=== PATIENT | female | born 1960 | race Caucasian/White ===

== ENCOUNTER → 2019-08-06 | Outpatient (CLI) | payer BC ==
--- NOTE | 2019-08-06 11:32 | REPMRS ---
Patient History The patient states she had a clinical breast exam in June 2019. Patient is postmenopausal. No known family history of cancer. Priors over 10 years ago, no longer available Digital Woman Screen Mammo: August 06, 2019 - Exam #: [id number] Bilateral CC and MLO view(s) were taken. Technologist: Deborah Zaldivar, Technologist No prior studies available for comparison. FINDINGS: There are scattered fibroglandular densities. There is no evidence of dominant mass, architectural distortion, or grouped microcalcification typical of malignancy. 3-D tomosynthesis shows no additional findings. Assessment: BI-RADS/ACR category 1 mammogram. Negative Mammogram. Recommendation Routine screening mammogram of both breasts in 1 year (for women over age 40). This patient's Lifetime Breast Cancer RIsk is estimated at 8.4 %. This mammogram was interpreted with the aid of an FDA-approved computer-aided dectection system. Electronically Signed By: Merrill Calderon MD 08/06/19 3605
--- NOTE | 2019-08-06 19:01 | REP ---
Clinical: Postmenopausal bleeding Technique: Transabdominal pelvic ultrasound followed by transvaginal examination for better evaluation of the endometrium and adnexa with color Doppler evaluation of the ovaries. Findings: Bladder is unremarkable and measures 8.2 x 5.7 x 6.4 cm . Heterogeneous anteverted uterus measures 7.6 x 4.1 x 5.4 cm and includes 1.5 x 0.8 x 1.4 cm complex hypoechoic structure in the cervix which may represent complex Nabothian cyst. The endometrial complex is heterogeneous and measures 12 mm thickness without discrete focal endometrial abnormality. Bilateral ovaries are normal in appearance and vascularity without evidence for torsion. Right ovary measures 2.1 x 1.2 x 1.1 cm with 0.8 cm possible complex cyst ; Left ovary measures 1.4 x 1.4 x 1.2 cm. No pelvic fluid or adnexal mass lesion . Impression: 1. 1.5 cm complex hypoechoic structure in the cervical region which may represent complex Nabothian cyst. Differential diagnosis may include fibroid. Consider short-term follow-up ultrasound and/or pelvic MRI for more definitive evaluation. 2. Heterogeneous thickened endometrial complex to 12 mm without discrete focal abnormality identified.
== END ==
LOC: M WHC 07:51
PROVIDERS: ATTEND Obstetrics & Gynecology
DX: N95.0 Postmenopausal bleeding (principal); Z12.31 Encounter for screening mammogram for malignant neoplasm of breast

== ENCOUNTER → 2019-08-16 | Outpatient (CLI) | payer BC ==
[~2019-08-16] MED LIST: ACET25TA12 PO
--- NOTE | 2019-08-17 01:08 | ECGEPIP ---
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
== END ==
LOC: M EKG 08:42
PROVIDERS: ATTEND Obstetrics & Gynecology
DX: N95.0 Postmenopausal bleeding (principal)

== ENCOUNTER → 2019-08-19 | Outpatient (CLI) | payer BC | LOC: M LABSMTC 12:10 | PROVIDERS: ATTEND Anesthesiology | DX: Z01.812 Encounter for preprocedural laboratory examination (principal); Z11.59 Encounter for screening for other viral diseases | CPT/HCPCS: C9803; U0003 ==

== ENCOUNTER 2019-08-22 11:14 | Day surgery (SDC) | payer BC ==
[~2019-08-22] VITALS: Ht 180.3 cm; Wt 121.1 kg
[~2019-08-22 11:14] MED LIST changes: +LIDOCAINE 2% 100MG/5ML SDV (FOR ANES.) As Ordered ONE; +LR 1,000 ML IV ONE; +MIDAZOLAM INJ 2MG/2ML VIAL (J2250 PER 1MG) As Ordered ONE; +fentaNYL 100 MCG/2 ML INJECTION (J3010) As Ordered ONE; +propofoL 200 MG/20 ML VIAL As Ordered ONE
[2019-08-22] MEDS ORDERED: DESFLURANE 240 ML INHALANT As Ordered ONE (13:31)
[2019-08-22] MEDS ORDERED: ACETAMINOPHEN 1000MG 100ML IV BTL (OFIRMEV) (J0131 PER 10MG) As Ordered ONE (13:33)
[2019-08-22] MEDS ORDERED: METOCLOPRAMIDE INJ 10MG/2ML VIAL (J2765 PER 1) As Ordered ONE (13:34)
[2019-08-22] MEDS ORDERED: KETOROLAC 60 MG/2 ML VIAL As Ordered ONE (13:34)
[2019-08-22] MEDS ORDERED: ONDANSETRON 4MG/2ML VIAL As Ordered ONE (13:34)
[2019-08-22] MEDS ORDERED: dexameTHASONE 4 MG/ML 1ML VIAL (J1100 PER 1MG) As Ordered ONE (13:48)
[2019-08-22] MEDS ORDERED: fentaNYL 100 MCG/2 ML INJECTION (J3010) IV PRN (14:15)
[2019-08-22] MEDS ORDERED: oxyCODONE 5MG TAB PO PRN (14:15)
[2019-08-22] MEDS ORDERED: ONDANSETRON 4MG/2ML VIAL IV PRN (14:15)
[2019-08-22] MEDS ORDERED: LR 1,000 ML IV SCH ×2 (14:15→14:30)
[2019-08-22] MEDS ORDERED: IBUPROFEN 400 MG TAB PO PRN (14:30)
[2019-08-22 15:45] VITALS: BP 166/84
--- NOTE | 2019-08-27 11:49 | RO ---
DATE OF SURGERY: 08/22/2019 PREOPERATIVE DIAGNOSES AND INDICATION FOR SURGERY: Postmenopausal bleeding with abnormal ultrasound. POSTOPERATIVE DIAGNOSES: Postmenopausal bleeding with abnormal ultrasound with official diagnosis of multiple polypoid growths of the endometrium. PROCEDURE: Dilation and curettage (D and C), hysteroscopy, MyoSure resection of all those polypoid growths. SURGEON: Evelia Moulton MD KILNMAN: None. ANESTHESIA: Laryngeal mask airway (LMA). BRIEF DESCRIPTION OF PROCEDURE AND FINDINGS: Queenie was brought to the operating room, where sufficient general LMA anesthesia was induced. She was prepped, draped, and positioned in the usual sterile fashion with the [place] retractor placed at the bladder emptied and the cervix grasped with a single-tooth tenaculum. The uterus is not particularly mobile under anesthesia. The uterus was sounded to 9 cm, and then carefully the dilators were used to dilate the cervix until the MyoSure hysteroscope could be placed. This was then placed and the endometrial cavity visualized. As noted in the operative photos, multiple endometrial polypoid growths were noted, which appear to be endometrial polyps. The MyoSure Reach was then used to resect these. As noted in the operative photos, they were resected in their visual entirety. There did not appear to be any remaining polyps when we had completed the MyoSure resection. I did take a few passes with the curette to confirm normal endometrial cry throughout, and then the procedure was ended. ESTIMATED BLOOD LOSS FOR THE PROCEDURE: Maybe 3 mL. FLUID REPLACEMENT: Crystalloid. COMPLICATIONS: None. CONDITION AND DISPOSITION: Queenie tolerated the procedure well and was recovering in the recovery room in good condition.
== END 2019-08-22 16:00 | disposition home or self-care (01) ==
LOC: M SDC 11:14
PROVIDERS: ATTEND Obstetrics & Gynecology
DX: N95.0 Postmenopausal bleeding (principal); N84.0 Polyp of corpus uteri; E66.9 Obesity, unspecified
CPT/HCPCS: 58558; 88305; J0131; J1100; J1885; J2250; J2405; J2765; J3010

== ENCOUNTER → 2020-07-01 | Outpatient (CLI) | payer BC ==
[~2020-07-01] MED LIST changes: -LIDOCAINE 2% 100MG/5ML SDV (FOR ANES.) As Ordered ONE; -LR 1,000 ML IV ONE; -MIDAZOLAM INJ 2MG/2ML VIAL (J2250 PER 1MG) As Ordered ONE; -fentaNYL 100 MCG/2 ML INJECTION (J3010) As Ordered ONE; -propofoL 200 MG/20 ML VIAL As Ordered ONE
== END ==
LOC: M LABSMTC 10:59
PROVIDERS: ATTEND Anesthesiology
DX: Z01.818 Encounter for other preprocedural examination (principal); Z20.822 Contact with and (suspected) exposure to COVID-19

== ENCOUNTER 2020-07-06 06:29 | Day surgery (SDC) | payer BC ==
[~2020-07-06] VITALS: Ht 177.8 cm; Wt 117.9 kg
[2020-07-06] MEDS ORDERED: TOBRAMYCIN 80 MG/2 ML As Ordered ONE (06:38)
[2020-07-06] MEDS ORDERED: POVIDONE-IODINE 5% OPHTH PREP SOL 30ML As Ordered ONE (06:38)
[2020-07-06] MEDS ORDERED: BETAMETHASONE SOLUSPAN 6MG/ML 5ML VIAL (J0702 PER 3MG) As Ordered ONE (06:38)
[2020-07-06] MEDS ORDERED: DUOVISC (0.50ML VISCOAT/0.55ML PROVISC) OPHTH KIT As Ordered ONE (06:39)
[2020-07-06] MEDS ORDERED: MANNITOL IV ONE (07:00)
[2020-07-06] MEDS ORDERED: NS IV ONE (07:00)
[2020-07-06] MEDS ORDERED: FILTER 1.2 MICRON (ADULT TPN/MANNITOL/REMICADE) XX ONE (07:10)
[2020-07-06] MEDS ORDERED: ACETYLCHOLINE OPHTH SOLN 1% 2ML (MIOCHOL-E) As Ordered ONE (07:11)
[2020-07-06] MEDS ORDERED: ONDANSETRON 4MG/2ML VIAL As Ordered ONE (07:19)
[2020-07-06] MEDS ORDERED: dexameTHASONE 4 MG/ML 1ML VIAL (J1100 PER 1MG) As Ordered ONE (07:19)
[2020-07-06] MEDS ORDERED: fentaNYL 100 MCG/2 ML INJECTION (J3010) As Ordered ONE (07:19)
[2020-07-06] MEDS ORDERED: LIDOCAINE 2% 100MG/5ML SDV (FOR ANES.) As Ordered ONE (07:19)
[2020-07-06] MEDS ORDERED: propofoL 200 MG/20 ML VIAL As Ordered ONE ×2 (07:19→09:24)
[2020-07-06] MEDS ORDERED: MIDAZOLAM INJ 2MG/2ML VIAL (J2250 PER 1MG) As Ordered ONE (07:20)
[2020-07-06] MEDS ORDERED: SUGAMMADEX SODIUM 500 MG/5 ML VIAL (BRIDION) As Ordered ONE (09:39)
[2020-07-06] MEDS ORDERED: ROCURONIUM BROMIDE 50 MG/5 ML VIAL As Ordered ONE (09:39)
[2020-07-06] MEDS ORDERED: LACRILUBE (AKWA TEARS) OPHTH OINT 3.5 GM As Ordered ONE (09:40)
[2020-07-06] MEDS ORDERED: ePHEDrine SULFATE 25 MG/5 ML(5MG/ML) SYRINGE As Ordered ONE (09:53)
[2020-07-06] MEDS: TOBRADEX OPHTH OINT 3.5 GM As Ordered ONE ×2 (10:24→10:40)
[2020-07-06] MEDS ORDERED: FLUORESCEIN OPHTH 1 MG STRIP As Ordered ONE (10:27)
[2020-07-06] MEDS ORDERED: ONDANSETRON 4MG/2ML VIAL IV PRN (11:15)
[2020-07-06 12:15] VITALS: BP 145/85
--- NOTE | 2020-07-07 14:10 | RO ---
OPERATIVE NOTE DATE OF OPERATION: 07/06/2020 PREOPERATIVE DIAGNOSES: 1. 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 2. Corneal edema left eye. 3. Lattice corneal dystrophy left eye. POSTOPERATIVE DIAGNOSES: 1. 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 2. Corneal edema left eye. 3. Lattice corneal dystrophy left eye. PROCEDURE: 1. Penetrating keratoplasty of the left eye (8.0/8.5). SURGEON: Isacc Springer DO COLLECTION SYSTEMS FOREMAN: ANESTHESIA: General. SPECIMENS: 1. Patient cornea. 2. Donor cornea. DESCRIPTION OF PROCEDURE: The patient was seen and identified in the preoperative area. The patient received antibiotics and anesthetics to the surface of the surgical eye. The patient also received 30 gm of IV Mannitol infusion over one hour prior to the surgery. The patient was transferred to the operating room. The patient was placed under general anesthesia per the anesthesia department. The patient was prepped and draped in sterile fashion. Tegaderm was used to isolate the upper and lower eyelids, wire lid speculum was placed. Flieringa ring was sutured to the eye using 6-0 nylon sutures. The cornea graft was measured to be about 8.0 mm. A metal trephine was used cristi this area. The center of the cornea was marked with [place] hook and marking pen. At that time decision was made to place an 8.5 mm donor graft. Attention was then turned to the donor cornea. The donor cornea was placed endothelial side up and a Ward trephine donor punch 8.5 mm in size. The cornea was trephinated cleanly. Attention was turned back to the patient's cornea. Using an 8.0 mm vacuum host trephination device, the vacuum trephine was placed on the patient's cornea, partial turns of the device were used to partially trephinate the cornea. Weck spear was used to check the depth and it was found to be appropriate at that time. A paracentesis incision was made into the partial trephination entering the anterior chamber. Miochol was placed into the anterior chamber and then cohesive Viscoelastic was placed into the anterior chamber. Using right-going and left-going forceps the patient's host cornea was excised 360 degrees without difficulty. Cohesive Viscoelastic was placed over the surface of the iris. The donor button was brought into the cornea with Neela spatula. Using Pollack forceps and 10-0 nylon suture the four cardinal sutures were placed at 12, 6, 3 and 9. Additional 10-0 nylon sutures were placed circumferentially. The cohesive viscoelastic was evacuated with BSS then the final sutures were placed. The suture knots were buried. The anterior chamber was then refilled with BSS and then the last suture was placed. Any sutures that were found to be loose were cut and replaced. Weck spear was used to dry the surface of the cornea and check for any leaks. There were none found. A fluorescein strip confirmed that there was negative Ela test. At that time a collagen contact lens was placed with the surface of the surgical cornea. Tobramycin 0.2 mL and Triesence 0.2 mL were injected into the subconjunctival space. The patient tolerated the procedure very well. TobraDex was placed on the surface of the surgical eye. The wire lid speculum and drapes were removed. A patch and shield were placed. The patient was discharged to the PACU in stable condition. JOSE
== END 2020-07-06 12:15 | disposition home or self-care (01) ==
LOC: M SDC 06:29
PROVIDERS: ATTEND Ophthalmology
DX: T86.8412 Corneal transplant failure, left eye (principal); H18.5 Hereditary corneal dystrophies; H18.22 Idiopathic corneal edema
CPT/HCPCS: 65756; 65757; 65779; 87070; 87075; 87102; 87205; 88300; J0702; J1100; J2150; J2250; J2405; J3010; J3260

== ENCOUNTER 2023-08-26 23:19 | Emergency (ER) | payer BC, OTHER ==
[~2023-08-26] VITALS: Ht 177.8 cm; Wt 124.2 kg
[2023-08-27] MEDS: AUGMENTIN 875 MG TAB PO ONE (01:20)
[2023-08-27] MEDS ORDERED: LIDOCAINE 1% MDV 20ML VIAL As Ordered ONE (01:23)
[2023-08-27] MEDS: BOOSTRIX VACCINE (TETANUS/DIPHTH/ACEL. PERTUSSIS) 0.5ML SYR IM ONE (01:25)
[2023-08-27] MEDS: LIDOCAINE 1% MDV 20ML VIAL SC ONE (01:25)
[2023-08-27] MEDS: ACETAMINOPHEN TAB 650MG DOSE (2X325MG) PO ONE (01:27)
[2023-08-27] MEDS ORDERED: AMOX875T2 PO (01:38)
[2023-08-27 01:54] VITALS: BP 149/87; TEMP 98.1; O2SAT 98
== END 2023-08-27 02:00 | disposition home or self-care (01) ==
LOC: M ED 23:19
DX: S61.441A Puncture wound with foreign body of right hand, initial encounter (principal); W54.0XXA Bitten by dog, initial encounter; Y92.009 Unspecified place in unspecified non-institutional (private) residence as the place of occurrence of the external cause; Y93.K9 Activity, other involving animal care; Y99.9 Unspecified external cause status; Z79.2 Long term (current) use of antibiotics; Z23 Encounter for immunization